=== PATIENT | male | born 1955 | race Caucasian/White ===

== ENCOUNTER 2022-04-24 00:30 | Observation (INO) | payer MEDICARE, OTHER, MEDICAID, SELFPAY ==
[2022-04-24] VITALS (10 sets, daily range): BP systolic 147–194; BP diastolic 67–108; PULSE 59–67; RESP 13–20; TEMP 36.3–36.8; O2SAT 87–97; BMI 53.1; BMI 51.5
--- NOTE | 2022-04-24 00:44 | EKG12_ITS ---
Test Reason : CP Blood Pressure : / mmHG Vent. Rate : 062 BPM Atrial Rate : 062 BPM P-R Int : 232 ms QRS Dur : 122 ms QT Int : 482 ms P-R-T Axes : 018 -52 028 degrees QTc Int : 489 ms Sinus rhythm with 1st degree A-V block Right bundle branch block Left anterior fascicular block Bifascicular block Abnormal ECG Confirmed by VINCENZO LUJAN, DONNA ([id number]), order editor NATALIA SCHREIBER ([id number]) on 04/25/2022 9:41:09 AM Referred By: ROBB Confirmed By:DONNA LOYA MD
--- NOTE | 2022-04-24 00:44 | RAD_ITS ---
EXAM: XR CHEST, 1 VIEW CLINICAL INDICATION: chest pain TECHNIQUE: Frontal view of the chest. This report was created using [employer] report generation technology. COMPARISON: None. FINDINGS: LUNGS AND PLEURAL SPACES: No acute pulmonary infiltrates or pleural effusions. No pneumothorax. HEART: Heart size is moderately enlarged with left ventricular configuration. Normal pulmonary vasculature. MEDIASTINUM: Thoracic aorta is moderately elongated; a rounded retrocardiac density is present, primarily due to elongation of the thoracic aorta, but a hiatal hernia also be present. BONES/JOINTS: Fixation plates and screws overlying the posterior left fifth through ninth ribs. Degenerative osteoarthritis of both shoulders, right greater than left. SOFT TISSUES: Large body habitus. TUBES, LINES AND DEVICES: Bipolar cardiac pacemaker/internal defibrillator in place, with the generator overlying the left midlung laterally. RAD/Chest 1 View (Portable) IMPRESSION: No acute pulmonary infiltrates. Rounded retrocardiac density due to tortuosity of the thoracic aorta and possible hiatal hernia. Electronically Signed: Chetan Wick MD at 1:23 EST ,
[2022-04-24 00:50] LABS: Absolute Lymphocyte Count 1.01 X10^3/uL (0.83-4.51); Absolute Neutrophil Count 3.7 X10^3/uL (2.0-7.7); Basophil# 0.02 X10^3/uL; Basophil% 0.4 % (0-1); Eosinophil# 0.11 X10^3/uL; Hematocrit 39.6 % (40-54); Hemoglobin 12.6 g/dL (13.0-16.5); Lymphocyte # 1.01 X10^3/ul (0.83-4.51); Lymphocyte % 18.2 % (19-41); Mean Corp Hgb Conc 31.8 g/dL (32-36); Mean Corpuscular Hgb 29.6 pg (27.0-32.0); Mean Corpuscular Volume 93.2 fL (80-94); Mean Platelet Vol. 9.2 fl (6.2-12.0); Monocyte# 0.69 X10^3/uL; Monocyte% 12.4 % (0-10); NRBC Flagged by Analyzer 0 % (0-5); Neutrophil # 3.72 X10^3/uL (2.7-7.7); Neutrophil % 66.8 % (47-70); Platelet Count 185 K/mm3 (150-450); RBC Distribution Width CV 13.7 % (11.6-14.6); RBC Distribution Width SD 46.8 fl (35.1-43.9); Red Blood Count 4.25 M/mm3 (4.6-6.2); White Blood Count 5.6 K/mm3 (4.4-11.0)
--- NOTE | 2022-04-24 00:50 | EDS_ITS ---
HPI History of Present Illness Chief Complaint: Chest Pain Informant: patient and EMS Narrative Narrative: I directly talked to EMS providers. When they arrived to see the patient, he looked rivero, ashen and ill. They were getting ST elevations on the monitor on their EKGs but they were not able to capture and save most of these. They did save 1 monitor strip that had some elevation in 2 and 3. But the one EKG that was able to be captured showed a paced rhythm with bundle branch block but no sign of ST elevation. There is no report of dysrhythmia or V. tach that was seen. Patient states that he went to bed somewhere around 930 or 10 and started to get a tightness or pressure on his anterior chest. It sounds like it did not radiate anywhere. But he did get some mild dyspnea. He checked his oxygen saturation and was at 93% but he was still dyspneic. Mild nausea but no vomiting or diaphoresis. He states he does have COPD and sinus. It sounds like he may have been having some more intermittent breathing issues over the last few days but it does not sound like he was having chest pain until this evening. He currently has no pain. He has a history of what sounds like ventricular tachycardic arrest a little over a year ago. An ICD was placed. He denies diabetes. He does have high blood pressure. He has a family history of heart disease in his father but he does not know at what age this started. He is a non-smoker. He states he had a heart catheterization when they placed the ICD but he did not have any blockages or need any stents. Past medical history includes cardiac arrest, high blood pressure, high cholesterol, depression, GERD, BPH, possible CHF. Medications include Lasix, atorvastatin, lisinopril/hydrochlorothiazide, mexiletine, amiodarone, baby aspirin daily, omeprazole, Flomax, Lexapro, possible metoprolol. No known drug allergies Surgeries include ICD placement, Lasix, multiple left rib fracture repairs, umbilical hernia Lives at home, non-smoker. [facility] Medical History (Updated 04/24/22 @ 04:[address] Juan Wilcox MD) Cardiac arrest COPD exacerbation Home Medications amiodarone 200 mg tablet mg 04/24/22 [History Last Taken Unknown] aspirin 81 mg capsule 81 mg PO DAILY 04/24/22 [History Last Taken Unknown] atorvastatin 80 mg tablet mg 04/24/22 [History Last Taken Unknown] atorvastatin 80 mg tablet mg 04/24/22 [History Last Taken Unknown] escitalopram oxalate 20 mg tablet mg 04/24/22 [History Last Taken Unknown] furosemide 20 mg tablet mg 04/24/22 [History Last Taken Unknown] furosemide 20 mg tablet mg 04/24/22 [History Last Taken Unknown] lisinopril 20 mg tablet mg 04/24/22 [History Last Taken Unknown] metoprolol succinate 100 mg tablet,extended release 24 hr mg PO 04/24/22 [History Last Taken Unknown] metoprolol succinate 25 mg tablet,extended release 24 hr mg PO 04/24/22 [History Last Taken Unknown] mexiletine 150 mg capsule mg 04/24/22 [History Last Taken Unknown] mexiletine 150 mg capsule mg 04/24/22 [History Last Taken Unknown] omeprazole 20 mg capsule,delayed release mg 04/24/22 [History Last Taken Unknown] omeprazole 20 mg capsule,delayed release mg 04/24/22 [History Last Taken Unknown] tamsulosin 0.4 mg capsule mg PO 04/24/22 [History Last Taken Unknown] Allergy/AdvReac Type Severity Reaction Status Date / Time No Known Allergies Allergy Verified 04/24/22 00:38 Family History (Updated 04/24/22 @ 00:[address] Peter Moss MD) Other Heart disease Surgical History (Updated 04/24/22 @ 00:[address] Peter Moss MD) H/O hernia repair Social History Smoking Status: Never smoker ROS ROS ED Constitutional Constitutional ED: Denies chills or fever(s) ENT ENT ED: Reports rhinorrhea; Denies sore throat Cardiovascular Cardiovascular: Reports as per HPI Respiratory/Chest Respiratory/Chest: Reports dyspnea; Denies cough Gastrointestinal Gastrointestinal: Reports nausea; Denies vomiting Musculoskeletal Musculoskeletal: Denies myalgias Integumentary Denies rash Neurologic Neurologic: Denies paresthesias Psychiatric Psychiatric: Reports depression Endocrine Endocrinology: Denies polydipsia or polyuria Hematologic/Lymphatic Hematologic/Lymphatic: Denies easy bleeding or easy bruising Allergic/Immunologic Allergic/Immunologic ED: Denies tongue swelling EXAM Physical Exam Narrative Exam Narrative: Patient is awake alert in no acute distress. He was greeted when he came in with EMS. He is denying pain at this time. HEENT shows no pallor or diaphoresis. No sign of trauma. Neck is thick and cannot assess for JVD. Heart does sound to be regular. He appears to be in sinus rhythm now on the monitor. I hear no murmur. He does have good peripheral pulses. No mottling. Lungs are clear. I am not hearing signs of wheezing or COPD as a source of his symptoms. Abdomen is obese but overall benign. He has well-healed scar over umbilical hernia. Skin shows no rash mottling or diaphoresis. Extremities show trace edema which he states is normal. Const Vital Signs: 04/24/22 00:31 04/24/22 00:31 04/24/22 00:44 Temperature 98.0 F Temperature Source Temporal Pulse Rate 60 Respiratory Rate 13 Blood Pressure 167/107 H Blood Pressure Mean 127 Pulse Ox 95 90 Oxygen Delivery Method Nasal Cannula Room Air Room Air Oxygen Flow Rate (L/min) 2 MDM MDM MDM Narrative Medical decision making narrative: My independent interpretation of the patient's single view chest x-ray shows repair of 6 ribs on the left consistent with his history. He has a ICD pacer. He does appear to have cardiomegaly even on AP film. I can still see both costophrenic angles and there is no indication of significant effusion congestive heart failure or infiltrate. Final reading is pending. Patient's blood work showed minimal anemia at 12.6. Electrolytes were normal other than glucose elevated 120. His first troponin was negative at 6. Patient had episode of chest pain with possible ST changes in the field. But his symptoms and his ST changes resolved prior to arrival. He reports a negative cath about a year ago but he certainly has risk factors for heart disease and had symptoms consistent with that. I did discuss case with the hospitalist who was actually in the emergency department and saw the patient directly. Plan will be to admit him. I also discussed the case with our STEMI lithograph designer on-call. We discussed the case prior to the patient's arrival based on the prehospital calling of the STEMI. We discussed the case after he got EKG here also. Lab Data Labs: Laboratory Results - last 24 hr 04/24/22 04/24/22 00:35 00:35 WBC 5.6 RBC 4.25 L Hgb 12.6 L Hct 39.6 L MCV 93.2 MCH 29.6 MCHC 31.8 L RDW Std Deviation 46.8 H RDW Coeff of Mohini 13.7 Plt Count 185 MPV 9.2 Immature Gran % (Auto) 0.200 Neut % (Auto) 66.8 Lymph % (Auto) 18.2 L [place] % (Auto) 12.4 H Eos % (Auto) 2.0 Baso % (Auto) 0.4 Absolute Neuts (auto) 3.7 Absolute Lymphs (auto) 1.01 Nucleated RBC % 0 Sodium 139 Potassium 3.5 Chloride 101 Carbon Dioxide 31.0 Anion Gap 7 BUN 12 Creatinine 0.82 Estim Creat Clear Calc 86.22 Est GFR (MDRD) Af Amer 120 Est GFR (MDRD) Non-Af 100 BUN/Creatinine Ratio 14.7 Glucose 120 H Calcium 8.9 Troponin I High Sens 6 Radiography Diagnostic Testing: Clinical Impression(s) from Imaging Studies Chest X-Ray 04/24/22 00:44 IMPRESSION: No acute pulmonary infiltrates. Rounded retrocardiac density due to tortuosity of the thoracic aorta and possible hiatal hernia. Electronically Signed: Chetan Wick MD at 1:23 EST , EKG Initial EKG: Comments: My independent interpretation of his EKG shows a normal sinus rhythm with first-degree AV block. Overall rate of 62. No ventricular ectopy on this EKG. He does have slight right bundle branch block. FL interval is long. QRS duration is a bit long and QTc are a bit long. There is no old for comparison as patient has never been to this facility. Discharge Plan Triage Chief Complaint: Chest Pain ED Provider: Juan Wilcox Dx/Rx/DC Orders Clinical Impression: Chest pain, Anemia, Acute dyspnea, HTN (hypertension) Primary Care Provider: Anthony Feliciano Disposition Disposition: Acute Care [facility]
--- NOTE | 2022-04-24 00:51 | HP.PCM.HOS_ITS ---
HPI - General General Date of Admission: 04/24/22 Date of Service: 04/24/22 Chief Complaint: Chest pain HPI Narrative ANDREW RODRIGUEZ, is a 66 M with a significant history of a cardiac arrest status post pacemaker with defibrillation; COPD on home CPAP/BiPAP who presents to the emergency department with chest pain that started about 3 hours prior to presentation. His chest pain is substernal. He described chest pain as tightness and heaviness. He denies any ameliorating or aggravating factors to the chest pain. The chest pain is nonradiating. Associated with her symptoms is shortness of breath. Patient follows up with cardiology and is on diuretics. He reported his last echocardiogram was about a week ago. The squad enroute called a STEMI. However EKG reviewed by cardiology did not show any STEMI. [facility] Medical History (Updated 04/24/22 @ 01:[address] Peter Moss MD) Cardiac arrest COPD exacerbation Allergy/AdvReac Type Severity Reaction Status Date / Time No Known Allergies Allergy Verified 04/24/22 00:38 Family History (Updated 04/24/22 @ 00:[address] Peter Moss MD) Other Heart disease Surgical History (Updated 04/24/22 @ 00:[address] Peter Moss MD) H/O hernia repair Social History Smoking Status: Never smoker ROS ROS Narrative Pertinent positives and pertinent negatives as noted in HPI. All other systems were reviewed and are negative Vital Signs Vital Signs Vital Signs: 04/24/22 00:31 04/24/22 00:31 Temperature 98.0 F Temperature Source Temporal Pulse Rate 60 Respiratory Rate 13 Blood Pressure 167/107 H Blood Pressure Mean 127 Pulse Ox 95 90 Oxygen Delivery Method Nasal Cannula Room Air Oxygen Flow Rate (L/min) 2 Weight Weight: 163.4 kg Body Mass Index (BMI) 53.1 Physical Exam Narrative Physical exam: General: Well-nourished, well-developed. Head: Normocephalic, atraumatic, no tenderness Eyes: Vision is grossly intact. EOMI ENT, no trauma, moist mucous membranes, no rhinorrhea Neck: Nontender, No thyromegaly. CVS: Regular rate and rhythm. S1-S2 present. No murmur, gallop or rub. Respiratory : clear to auscultation bilaterally, chest wall nontender, no w heezing Abdomen: Soft, nontender, nondistended, normal bowel sounds, no masses : Deferred Back: Nontender, no CVA tenderness, no midline spinal tenderness, deformities, step-offs Extremities: Nontender full range of motion, no trauma Skin: Normal color, no trauma, abrasions Neuro: Alert, oriented, cranial nerves II through XII grossly intact. Psychiatry: Normal mood. Normal affect. Not depressed. Not anxious. Results Lab / Micro Data Result Diagrams: 04/24/22 00:35 04/24/22 00:35 Labs: Laboratory Results - last 24 hr 04/24/22 00:35: WBC 5.6, RBC 4.25 L, Hgb 12.6 L, Hct 39.6 L, MCV 93.2, MCH 29.6, MCHC 31.8 L, RDW Std Deviation 46.8 H, RDW Coeff of Mohini 13.7, Plt Count 185, MPV 9.2, Immature Gran % (Auto) 0.200, Neut % (Auto) 66.8, Lymph % (Auto) 18.2 L, Nelson % (Auto) 12.4 H, Eos % (Auto) 2.0, Baso % (Auto) 0.4, Absolute Neuts (auto) 3.7, Absolute Lymphs (auto) 1.01, Nucleated RBC % 0 Assessment & Plan Assessment/Plan (1) Chest pain: (2) HTN (hypertension): PLAN: Plan Chest pain Place on a monitored bed at progressive care unit Chest x-ray ordered at the emergency department and independently interpreted by myself showed cardiomegaly without any acute infiltrates Actual EKG tracing was independently visualized. EKG tracing did not show ST elevations. EKG from paramedics in 2 leads showed some J-point elevations. ASA 81 mg p.o. daily ordered Morphine as needed for pain ordered We will check lipid panel. Serial cardiac enzymes ordered Stat EKG as needed for chest pain Continue home Guideline therapy the patient is on. Trend CBC and BMP. Order to obtain medical records?echocardiogram Because of high heart score will consult cardiology. History of cardiac arrhythmia Stable Reportedly patient is on amiodarone and mexiletine that we continued. Obstructive sleep apnea Home BiPAP continued Hypertension Blood pressure is not within goal Home blood pressure medication continued PRN Hydralazine iv ordered Morbid obesity BMI: 53.2 kg/m?. Complicates care. Lifestyle modification recommended. DVT prophylaxis: SCDs ordered Charges/Coding Visit Charges Inpatient E&M: 16474 Init Hosp L2
[2022-04-24 03:54] LABS: Anion Gap 7 (5-15); BUN 12 mg/dL (7-18); BUN/Creat Ratio 14.7 RATIO (10-20); Calcium,Total 8.9 mg/dL (8.5-10.1); Chloride 101 mmol/L (98-107); Creatinine, Serum 0.82 mg/dL (0.70-1.30); EST Glomerular Filtration Rate 100 mL/min (>60); Est Glom Filt Rate - Afr Amer 120 mL/min (>60); Estimated Creatinine Clearance 86.22 ml/min; Glucose 120 mg/dL (74-106); Potassium 3.5 mmol/L (3.5-5.1); Reflex Troponin-HS? (from REC) Y; Sodium Level 139 mmol/L (136-145); Troponin-I HS (w/2H Reflex) 6 pg/mL (3.0-78.0)
--- NOTE | 2022-04-24 04:43 | NURSING ---
With admission assessment pt states had taken 2 COVID immunizations, pt is unable to recall any information regarding administration date.
--- NOTE | 2022-04-24 04:58 | NURSING ---
0345- downtime lab result received troponin 5 pg/mL.
--- NOTE | 2022-04-24 05:30 | CPS ---
Pt chose to wear nasal o2 at 2L for the night instead of using hospital bipap machine. RN aware.
--- NOTE | 2022-04-24 05:40 | EKG12_ITS ---
Test Reason : ADMIT EKG Blood Pressure : / mmHG Vent. Rate : 060 BPM Atrial Rate : 060 BPM P-R Int : 280 ms QRS Dur : 118 ms QT Int : 482 ms P-R-T Axes : 008 -71 035 degrees QTc Int : 482 ms AV dual-paced rhythm with prolonged AV conduction Abnormal ECG Confirmed by VINCENZO LUJAN, DONNA ([id number]), offline editor NATALIA SCHREIBER ([id number]) on 04/25/2022 9:50:24 AM Referred By: Confirmed By:DONNA LOYA MD
[2022-04-24 06:34] LABS: Absolute Neutrophil Count 3.2 X10^3/uL (2.0-7.7); Basophil# 0.02 X10^3/uL; Basophil% 0.4 % (0-1); Eosinophil# 0.09 X10^3/uL; Eosinophils% 1.9 % (0-5); Hematocrit 38.2 % (40-54); Hemoglobin 12.3 g/dL (13.0-16.5); Lymphocyte % 17.3 % (19-41); Mean Corp Hgb Conc 32.2 g/dL (32-36); Mean Corpuscular Hgb 29.4 pg (27.0-32.0); Mean Corpuscular Volume 91.4 fL (80-94); Mean Platelet Vol. 8.9 fl (6.2-12.0); Monocyte# 0.53 X10^3/uL; Monocyte% 11.5 % (0-10); NRBC Flagged by Analyzer 0 % (0-5); Neutrophil # 3.17 X10^3/uL (2.7-7.7); Neutrophil % 68.7 % (47-70); Platelet Count 175 K/mm3 (150-450); RBC Distribution Width CV 13.6 % (11.6-14.6); RBC Distribution Width SD 46.1 fl (35.1-43.9); Red Blood Count 4.18 M/mm3 (4.6-6.2); White Blood Count 4.6 K/mm3 (4.4-11.0)
[2022-04-24 07:10] LABS: Troponin-I HS 6 pg/mL (3.0-78.0)
[2022-04-24 07:12] LABS: Anion Gap 4 (5-15); BUN 10 mg/dL (7-18); Calcium,Total 8.7 mg/dL (8.5-10.1); Chloride 106 mmol/L (98-107); Cholesterol 169 mg/dL (200); Creatinine, Serum 0.77 mg/dL (0.70-1.30); EST Glomerular Filtration Rate 107 mL/min (>60); Est Glom Filt Rate - Afr Amer 130 mL/min (>60); Glucose 102 mg/dL (74-106); High Density Lipoprotein 53 mg/dL; Potassium 3.8 mmol/L (3.5-5.1); Sodium Level 140 mmol/L (136-145); Triglycerides 106 mg/dL; Very Low Density Lipoprotein 21 mg/dL (5-40)
[2022-04-24 07:30] LABS: Troponin-I HS 5 pg/mL (3.0-78.0)
[2022-04-24] MEDS: Amiodarone 200 MG Tablet PO (10:20)
[2022-04-24] MEDS: Aspirin E.C. 81 MG Tablet PO (10:20)
[2022-04-24] MEDS: Tamsulosin HCl 0.4 MG Capsule PO (10:20)
[2022-04-24] MEDS: Furosemide 20 MG Tablet PO (10:20)
[2022-04-24] MEDS: Atorvastatin Calcium 80 MG Tablet PO (10:21)
[2022-04-24] MEDS: Mexiletine 150 MG Capsule PO (10:21)
[2022-04-24] MEDS: Escitalopram Oxalate 20 MG Tablet PO (10:21)
[2022-04-24] MEDS: Pantoprazole Sodium 20 MG Tablet PO (10:21)
[2022-04-24] MEDS: Metoprolol(XL)Succ 25 MG Tablet PO (10:24)
[2022-04-24] MEDS: Metoprolol(XL)Succ 100 MG Tablet PO (10:24)
--- NOTE | 2022-04-24 10:35 | CASEMGMT ---
Patient is listed as self pay. Patient has a primary care doctor. REGGIE called patient's PCP's office to obtain insurance information. Patient has Medicare [id number] with [employer] [id number]. REGGIE notified Central Registration and sent them the information. Kassy ACHARYA
--- NOTE | 2022-04-24 10:42 | CON.PCM.CA_ITS ---
Assessment & Plan Assessment/Plan (1) Chest pain: PLAN: Chest pain appears noncardiac in etiology. We will ambulate the patient and if he is able to do it without any issues he could be discharged home from a cardiac standpoint. 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 [facility] Consult Data Date of Consult: 04/24/22 HPI Narrative HPI Narrative: ANDREW RODRIGUEZ, is a 66 M who presents with chest pain. Patient states that he had chest pain for about 3 hours. Chest pain was retrosternal not related to exertion. He said that when he stood up it was worse. He was given 4 aspirins and by the time he came to the emergency room his chest pain improved and then resolved. He has not had any further chest pain. High-sensitivity troponin has been negative x3. Patient apparently had a heart cath about a year and a half back and had no blockages at that time. He had cardiac arrest about a year back and has a defibrillator. He also is on amiodarone and mexiletine. His telemetry revealed no arrhythmias. STEMI alert was called yesterday based on rhythm strip. However it appears that patient was ventricular paced at that time. Twelve-lead EKG done outside the hospital and as soon as the patient came to the emergency room did not reveal any STEMI. Patient apparently had a 2D echo last week and his primary rubber tire curer Dr. Fitzgerald from [facility] mentioned that everything was okay. He had COVID a few months back. He has also gained weight. He has been having shortness of breath and is being worked up as an outpatient for this. He also had pulmonary function test done for this. He is on home oxygen. Review of systems: All systems reviewed. All else is negative except that in [facility] Medical History (Updated 04/24/22 @ 04:[address] Juan Wilcox MD) Cardiac arrest COPD exacerbation Home Medications amiodarone 200 mg tablet 200 mg PO DAILY 04/24/22 [History Last Taken 04/23/22] aspirin 81 mg capsule 81 mg PO DAILY 04/24/22 [History Last Taken Unknown] atorvastatin 80 mg tablet 80 mg PO DAILY 04/24/22 [History Last Taken 04/23/22] escitalopram oxalate 20 mg tablet 20 mg PO DAILY 04/24/22 [History Last Taken 04/23/22] furosemide 20 mg tablet 20 mg PO BID 04/24/22 [History Last Taken 04/23/22] lisinopril 20 mg tablet 20 mg PO DAILY 04/24/22 [History Last Taken Unknown] metoprolol succinate 100 mg tablet,extended release 24 hr 100 mg PO DAILY 04/24/22 [History Last Taken 04/23/22] metoprolol succinate 25 mg tablet,extended release 24 hr 25 mg PO DAILY 04/24/22 [History Last Taken 04/23/22] mexiletine 150 mg capsule 150 mg PO BID 04/24/22 [History Last Taken 04/23/22] omeprazole 20 mg capsule,delayed release 20 mg PO DAILY 04/24/22 [History Last Taken 04/23/22] tamsulosin 0.4 mg capsule 0.4 mg PO DAILY 04/24/22 [History Last Taken 04/23/22] Allergy/AdvReac Type Severity Reaction Status Date / Time No Known Allergies Allergy Verified 04/24/22 00:38 Family History (Updated 04/24/22 @ 00:[address] Peter Moss MD) Other Heart disease Surgical History (Updated 04/24/22 @ 00:[address] Peter Moss MD) H/O hernia repair Social History Smoking Status: Never smoker Physical Exam Const alert and oriented x3 HEENT normocephalic Eyes no scleral icterus Chest inspection of chest normal Resp normal respiratory effort and clear to auscultation bilaterally Cardio regular rate and regular rhythm Extremity no pedal edema Skin no rashes or lesions noted Psych mental status grossly normal Risk Stratification Risk Stratification Applicable: No Charges/Coding Visit Charges Inpatient E&M: 61365 Init Hosp L2 Objective Data Vital Signs: Vital Signs Temp Pulse Resp BP Pulse Ox O2 Del Method O2 Flow Rate 97.8 F 60 20 H 180/99 H 95 Nasal Cannula 2 04/24/22 09:06 04/24/22 10:24 04/24/22 09:06 04/24/22 10:24 04/24/22 09:06 04/24/22 09:21 04/24/22 09:21 Oxygen Flow Rate (L/min) 2 Oxygen Delivery Method Nasal Cannula Weight: 349 lb 6.923 oz Body Mass Index (BMI) 51.5 Intake & Output: Intake and Output for Last 24 Hours 04/22/22 04/23/22 04/24/22 23:59 23:59 23:59 Intake Total 0 / 0 Balance 0 / 0 Lab / Micro Data Result Diagrams: 04/24/22 06:16 04/24/22 06:16 Labs: Laboratory Results - last 24 hr 04/24/22 00:35: WBC 5.6, RBC 4.25 L, Hgb 12.6 L, Hct 39.6 L, MCV 93.2, MCH 29.6, MCHC 31.8 L, RDW Std Deviation 46.8 H, RDW Coeff of Mohini 13.7, Plt Count 185, MPV 9.2, Immature Gran % (Auto) 0.200, Neut % (Auto) 66.8, Lymph % (Auto) 18.2 L, [place] % (Auto) 12.4 H, Eos % (Auto) 2.0, Baso % (Auto) 0.4, Absolute Neuts (auto) 3.7, Absolute Lymphs (auto) 1.01, Nucleated RBC % 0 04/24/22 00:35: Sodium 139, Potassium 3.5, Chloride 101, Carbon Dioxide 31.0, Anion Gap 7, BUN 12, Creatinine 0.82, Estim Creat Clear Calc 86.22, Est GFR (MDRD) Af Amer 120, Est GFR (MDRD) Non-Af 100, BUN/Creatinine Ratio 14.7, Glucose 120 H, Calcium 8.9, Troponin I High Sens 6 04/24/22 03:10: Troponin I High Sens 5 04/24/22 06:16: Sodium 140, Potassium 3.8, Chloride 106, Carbon Dioxide 30.0, Anion Gap 4 L, BUN 10, Creatinine 0.77, Estim Creat Clear Calc 70.70, Est GFR (MDRD) Af Amer 130, Est GFR (MDRD) Non-Af 107, BUN/Creatinine Ratio 13.0, Glucose 102, Calcium 8.7, Triglycerides 106, Cholesterol 169, LDL Cholesterol 95, VLDL Cholesterol 21, HDL Cholesterol 53 04/24/22 06:16: WBC 4.6, RBC 4.18 L, Hgb 12.3 L, Hct 38.2 L, MCV 91.4, MCH 29.4, MCHC 32.2, RDW Std Deviation 46.1 H, RDW Coeff of Mohini 13.6, Plt Count 175, MPV 8.9, Immature Gran % (Auto) 0.200, Neut % (Auto) 68.7, Lymph % (Auto) 17.3 L, Tripp % (Auto) 11.5 H, Eos % (Auto) 1.9, Baso % (Auto) 0.4, Absolute Neuts (auto) 3.2, Absolute Lymphs (auto) 0.80 L, Nucleated RBC % 0 04/24/22 06:16: Troponin I High Sens 6 Cardiology Labs/Tests 04/24/22 00:35: WBC 5.6, RBC 4.25 L, Hgb 12.6 L, Hct 39.6 L, MCV 93.2, MCH 29.6, MCHC 31.8 L, Plt Count 185, MPV 9.2, Immature Gran % (Auto) 0.200, Neut % (Auto) 66.8, Lymph % (Auto) 18.2 L, Tripp % (Auto) 12.4 H, Eos % (Auto) 2.0, Baso % (Auto) 0.4, Absolute Neuts (auto) 3.7, Nucleated RBC % 0 04/24/22 00:35: Sodium 139, Potassium 3.5, Chloride 101, Carbon Dioxide 31.0, A nion Gap 7, BUN 12, Creatinine 0.82, Est GFR (MDRD) Af Amer 120, Est GFR (MDRD) Non-Af 100, BUN/Creatinine Ratio 14.7, Glucose 120 H, Calcium 8.9 04/24/22 06:16: Sodium 140, Potassium 3.8, Chloride 106, Carbon Dioxide 30.0, Anion Gap 4 L, BUN 10, Creatinine 0.77, Est GFR (MDRD) Af Amer 130, Est GFR (MDRD) Non-Af 107, BUN/Creatinine Ratio 13.0, Glucose 102, Calcium 8.7, Triglycerides 106, Cholesterol 169, LDL Cholesterol 95, VLDL Cholesterol 21, HDL Cholesterol 53 04/24/22 06:16: WBC 4.6, RBC 4.18 L, Hgb 12.3 L, Hct 38.2 L, MCV 91.4, MCH 29.4, MCHC 32.2, Plt Count 175, MPV 8.9, Immature Gran % (Auto) 0.200, Neut % (Auto) 68.7, Lymph % (Auto) 17.3 L, Tripp % (Auto) 11.5 H, Eos % (Auto) 1.9, Baso % (Auto) 0.4, Absolute Neuts (auto) 3.2, Nucleated RBC % 0 Rhythm: EKG: ECHO: Stress Test: Cardiac Cath: PCI: CT Surgery: Holter monitor: EPS: PPM: CXR: Chest CT Scan: Radiography Diagnostic Testing: Radiology Impression Chest X-Ray 04/24/22 00:44 IMPRESSION: No acute pulmonary infiltrates. Rounded retrocardiac density due to tortuosity of the thoracic aorta and possible hiatal hernia. Electronically Signed: Chetan Wick MD at 1:23 EST ,
--- NOTE | 2022-04-24 11:54 | DCINST_ITS ---
Discharge Instructions Diet Discharge Diet: Low fat / Low cholesterol and 2000 Calorie Control Diet Activity Discharge Activity: Return to Normal Activity Dressing / Incision Call your doctor if you observe: Fever of 101 or Higher, Shortness of breath, Dizziness, Fainting spells, Swelling in the ankles, Chest pain and Increased palpitations (irregular heartbeat) Follow Up Care Test Results: Test results from this visit will be discussed in further detail at your follow- up appointment, if applicable. Discharge Plan Admission Admit Date/Time: 04/24/22 00:45 Attending Provider: Tres Pablo Primary Care Provider: nAthony Feliciano Consulting Providers: Richard Ireland ; Peter Moss Discharge Orders/Prescriptions Prescriptions: Continued atorvastatin 80 mg tablet 80 mg PO DAILY amiodarone 200 mg tablet 200 mg PO DAILY lisinopril 20 mg tablet 20 mg PO DAILY metoprolol succinate 100 mg tablet extended release 24 hr 100 mg PO DAILY tamsulosin 0.4 mg capsule 0.4 mg PO DAILY mexiletine 150 mg capsule 150 mg PO BID omeprazole 20 mg capsule,delayed release(DR/EC) 20 mg PO DAILY furosemide 20 mg tablet 20 mg PO BID metoprolol succinate 25 mg tablet extended release 24 hr 25 mg PO DAILY escitalopram oxalate 20 mg tablet 20 mg PO DAILY aspirin 81 mg Capsule 81 mg PO DAILY Referrals / Follow Up: Anthony Feliciano MD [Primary Care Provider] - Within 1 Week Disposition Disposition (needs filled in before D/C Order can be placed): Home, Self Care
--- NOTE | 2022-04-24 12:00 | DS.PCM_ITS ---
Providers Date of Admission: 04/24/22 Primary Care Physician: Dr. Anthony Feliciano MD Consultations 04/24/22 01:51 Consult: Cardiology Routine Consulting Provider: Richard Ireland Reason for Consult: chest pain EMERGENT Consult: No MD Notified: Yes Date Notified: 04/24/22 Time Notified: 00:50 Method of Notification: ED Physician Initiated Reason For Visit: CHEST PAIN Diagnosis Discharge Diagnosis (1) Chest pain: Status: Acute Code(s): R07.9 - Chest pain, unspecified Medications at Discharge Home Medications amiodarone 200 mg tablet 200 mg PO DAILY 04/24/22 aspirin 81 mg capsule 81 mg PO DAILY 04/24/22 atorvastatin 80 mg tablet 80 mg PO DAILY 04/24/22 escitalopram oxalate 20 mg tablet 20 mg PO DAILY 04/24/22 furosemide 20 mg tablet 20 mg PO BID 04/24/22 lisinopril 20 mg tablet 20 mg PO DAILY 04/24/22 metoprolol succinate 100 mg tablet,extended release 24 hr 100 mg PO DAILY 04/24/22 metoprolol succinate 25 mg tablet,extended release 24 hr 25 mg PO DAILY 04/24/22 mexiletine 150 mg capsule 150 mg PO BID 04/24/22 omeprazole 20 mg capsule,delayed release 20 mg PO DAILY 04/24/22 tamsulosin 0.4 mg capsule 0.4 mg PO DAILY 04/24/22 Hospital Course Operations None Procedures None Summary of Care Provided Minutes Spent on Discharge: 36 Hospital Course: Per HPI: ANDREW RODRIGUEZ, is a 66 M with a significant history of a 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 emergency department with chest pain that started about 3 hours prior to presentation.? His chest pain is substernal.? He described chest pain as tightness and heaviness.? He denies any ameliorating or aggravating factors to the chest pain.? The chest pain is nonradiating.? Associated with her symptoms is shortness of breath. Patient follows up with cardiology and is on diuretics.? He reported his last echocardiogram was about a week ago.? The squad enroute called a STEMI.? However EKG reviewed by cardiology did not show any STEMI. Hospital Course: 1. Chest pain/HTN/HLD/morbid obesity?66-year-old male presented with chest pain as well as tightness and heaviness for about 3 hours prior to presentation. Initially it was called a STEMI however on review of the EKG it was not. He had a heart cath about a year and a half ago with normal coronary arteries and he had a echo that he says was read as normal about a week ago. Cardiology was consulted and felt that we did not need to do a stress test, his troponins were completely normal and he has been having outpatient work-up for shortness of b reath as well as his periodic chest pain at an outside hospital. We did do an ambulatory pulse ox which did not cause any further chest pain and it did not require an increase in his oxygen requirements. He also is not presenting like a PE, he is not tachycardic does not have any increased leg swelling recently so further investigation would be low yield at this point. I discussed with him the plan for discharge today he expressed understanding of the risk benefits of going home and he would like to go home today. He is having PFTs done as an outpatient but he has not gotten the results yet. 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 We will zoom of his home blood pressure and cholesterol medications. He is amiodarone and mexiletine for an arrhythmia which we will also continue. Of note he did have COVID a few months back so some of his shortness of breath could be related to that but I do recommend that he follow-up with pulmonary to further pin down whether or not he has obesity hypoventilation syndrome versus COPD versus obstructive sleep apnea versus a combination of all 3. Physical Exam Narrative General: Alert, Oriented x3, Cooperative, No apparent distress, morbidly obese HEENT: Atraumatic, PERRLA, EOMI, Normocephalic Oral: Moist Mucosa Neck: Supple, No JVD Lungs: Diminished, Normal air movement, No rhonchi, No wheeze, No rales Cardiovascular: Regular rate, Regular Rhythm, Normal S1, Normal S2, No murmurs Abdomen: Soft, Non Tender, Non-Distended, No Hepato-splenomegaly Extremities: No edema, Capillary Refill Less than 3 Seconds Skin: No rashes, No breakdown Musculoskeletal: No Tenderness to Palpation of Joints or Extremities Neurological: Cranial nerves II-XII grossly intact, Motor Exam 5/5 strength throughout, Sensory exam intact to light touch and pain Psych/Mental Status: Normal Affect, Appropriate Weight / BMI Weight Weight: 349 lb 6.923 oz Body Mass Index (BMI) 51.5 ABG / Lab / Microbiology Data Result Diagrams: 04/24/22 06:16 04/24/22 06:16 Laboratory: Laboratory Results - last 24 hr 04/24/22 00:35: WBC 5.6, RBC 4.25 L, Hgb 12.6 L, Hct 39.6 L, MCV 93.2, MCH 29.6, MCHC 31.8 L, RDW Std Deviation 46.8 H, RDW Coeff of Mohini 13.7, Plt Count 185, MPV 9.2, Immature Gran % (Auto) 0.200, Neut % (Auto) 66.8, Lymph % (Auto) 18.2 L, [place] % (Auto) 12.4 H, Eos % (Auto) 2.0, Baso % (Auto) 0.4, Absolute Neuts (auto) 3.7, Absolute Lymphs (auto) 1.01, Nucleated RBC % 0 04/24/22 00:35: Sodium 139, Potassium 3.5, Chloride 101, Carbon Dioxide 31.0, Anion Gap 7, BUN 12, Creatinine 0.82, Estim Creat Clear Calc 86.22, Est GFR (MDRD) Af Amer 120, Est GFR (MDRD) Non-Af 100, BUN/Creatinine Ratio 14.7, Glucose 120 H, Calcium 8.9, Troponin I High Sens 6 04/24/22 03:10: Troponin I High Sens 5 04/24/22 06:16: Sodium 140, Potassium 3.8, Chloride 106, Carbon Dioxide 30.0, Anion Gap 4 L, BUN 10, Creatinine 0.77, Estim Creat Clear Calc 70.70, Est GFR (MDRD) Af Amer 130, Est GFR (MDRD) Non-Af 107, BUN/Creatinine Ratio 13.0, Glucose 102, Calcium 8.7, Triglycerides 106, Cholesterol 169, LDL Cholesterol 95, VLDL Cholesterol 21, HDL Cholesterol 53 04/24/22 06:16: WBC 4.6, RBC 4.18 L, Hgb 12.3 L, Hct 38.2 L, MCV 91.4, MCH 29.4, MCHC 32.2, RDW Std Deviation 46.1 H, RDW Coeff of Mohini 13.6, Plt Count 175, MPV 8.9, Immature Gran % (Auto) 0.200, Neut % (Auto) 68.7, Lymph % (Auto) 17.3 L, [place] % (Auto) 11.5 H, Eos % (Auto) 1.9, Baso % (Auto) 0.4, Absolute Neuts (auto) 3.2, Absolute Lymphs (auto) 0.80 L, Nucleated RBC % 0 04/24/22 06:16: Troponin I High Sens 6 Radiography Diagnostic Testing: Radiology Impression Chest X-Ray 04/24/22 00:44 IMPRESSION: No acute pulmonary infiltrates. Rounded retrocardiac density due to tortuosity of the thoracic aorta and possible hiatal hernia. Electronically Signed: Chetan Wick MD at 1:23 EST , D/C Instructions Discharge Diet: Low fat / Low cholesterol and 2000 Calorie Control Diet Call your doctor if you observe: Fever of 101 or Higher, Shortness of breath, Dizziness, Fainting spells, Swelling in the ankles, Chest pain and Increased palpitations (irregular heartbeat) Meaningful Use Info Meaningful Use Diagnoses (Choose all that apply): None applicable Discharge Plan Admission Admit Date/Time: 04/24/22 00:45 Attending Provider: Tres Pablo Primary Care Provider: Anthony Feliciano Consulting Providers: Richard Ireland ; Peter Moss Discharge Orders/Prescriptions Prescriptions: Continued atorvastatin 80 mg tablet 80 mg PO DAILY amiodarone 200 mg tablet 200 mg PO DAILY lisinopril 20 mg tablet 20 mg PO DAILY metoprolol succinate 100 mg tablet extended release 24 hr 100 mg PO DAILY tamsulosin 0.4 mg capsule 0.4 mg PO DAILY mexiletine 150 mg capsule 150 mg PO BID omeprazole 20 mg capsule,delayed release(DR/EC) 20 mg PO DAILY furosemide 20 mg tablet 20 mg PO BID metoprolol succinate 25 mg tablet extended release 24 hr 25 mg PO DAILY escitalopram oxalate 20 mg tablet 20 mg PO DAILY aspirin 81 mg Capsule 81 mg PO DAILY Referrals / Follow Up: Anthony Feliciano MD [Primary Care Provider] - Within 1 Week Disposition Disposition (needs filled in before D/C Order can be placed): Home, Self Care Charges/Coding Visit Charges OBSV E&M: 34323 Observ/hosp same date L2
--- NOTE | 2022-04-24 12:35 | CHAPLAIN ---
Type of Pastoral Visit _x__ Initial Visit ___ Follow-up Visit ___ On-call Visit ___ General Patient Visit ___ Spiritual Assessment ___ Family Conference ___ Bereavement ___ Rapid Response ___ Code Blue ___ Other (describe below) Pastoral Care Referral From _x__ Patient ___ Family ___ Nurse ___ Physician ___ Lining Cutter ___ Brake Repairer ___ Other (describe below) Sacrament/Intervention _x__ Active listening ___ Anointing ___ Muslim ___ Bereavement ___ Communion _x__ [place] ___ _x__ Life review _x__ Prayer ___ Reconciliation ___ Sacrament of Sick _x__ Supportive presence ___ Wedding ___ Other (describe below) Pastoral Comments this was a long visit with patient reviewing his list of health issues in last couple of years; pt repeatedly speaks of not expecting this so soon and when is it going to stop? and this gets me down and why, when I have been a good person; pt given listening ear, validation of feelings, compassionate understanding, and questions for the purpose of considering what resources and options he has for improved quality of life; when asked about support system patient only listed his 86 year old mother who is developing dementia; discussion on option of counseling from professionals or clergy led to pt stating I have thought of that but my family believes you should handle these things on your own. pt is open to emotional support and prayer
== END 2022-04-24 11:55 | disposition home or self-care (01) ==
LOC: ED 00:53 → PCU 01:02
PROVIDERS: Admitting Provider Hospitalist; Emergency Provider Emergency Medicine; PCP Family Medicine; Visit Provider Family Medicine
DX: R07.89 Other chest pain (principal); J44.9 Chronic obstructive pulmonary disease, unspecified; E66.01 Morbid (severe) obesity due to excess calories; Z68.43 Body mass index [BMI] 50.0-59.9, adult; D64.9 Anemia, unspecified; I45.4 Nonspecific intraventricular block; I49.9 Cardiac arrhythmia, unspecified; Z79.82 Long term (current) use of aspirin; I10 Essential (primary) hypertension; E78.00 Pure hypercholesterolemia, unspecified; R11.0 Nausea; Z95.810 Presence of automatic (implantable) cardiac defibrillator; N40.0 Benign prostatic hyperplasia without lower urinary tract symptoms; Z86.74 Personal history of sudden cardiac arrest; Z79.899 Other long term (current) drug therapy
CPT/HCPCS: 36415; 71045; 80048; 80061; 84484; 85025; 93005; 99221; 99285; A4216; G0378